=== PATIENT | female | born 1990 | race Caucasian/White ===

== ENCOUNTER 2020-11-16 11:32 | Emergency (ER) | payer MEDICAID, SELFPAY ==
--- NOTE | ~2020-11-16 | CT_ITS ---
EXAMINATION: CT abdomen pelvis wo con DATE: 11/16/2020 14:26 INDICATION: Left flank pain. TECHNIQUE: Computed tomography (CT) of the abdomen and pelvis was performed without intravenous contr ast. Automated exposure control and iterative reconstruction technique were employed. The dose-length product was 1048.53 mGy-cm. COMPARISON: CT abdomen and pelvis 11/01/2012 FINDINGS: The visualized portions of the lung bases demonstrate minimal atelectasis. No pleural effus ion. The heart size is normal. No pericardial effusion. The liver, gallbladder, spleen, pancreas, adr enal glands, and right kidney are normal. There is mild left hydronephrosis and hydroureter. There is a 4 mm stone in distal left ureter. There are no dilated loops of bowel. The appendix is normal. The re are no pathologically enlarged lymph nodes. There is no free intraperitoneal fluid. The bones are unremarkable. IMPRESSION: 1. 4 mm stone in distal left ureter with mild left hydronephrosis and hydroureter. Reviewed, dictated and finalized at location A. IMPRESSION: 1. 4 mm stone in distal left ureter with mild left hydronephrosis and hydrouret er.
[2020-11-16 11:39] VITALS: BP 129/68; PULSE 79; RESP 18; TEMP 36.6; O2SAT 100
[2020-11-16 12:03] LABS: Basophils Absolute Auto 0.1 K/mm3 (0.0-0.1); Basophils Percent Auto 0.6 % (0.2-1.2); Eosinophils Absolute Auto 0.1 K/mm3 (0-0.3); Eosinophils Percent Auto 0.8 % (0-4.4); Hematocrit 44.1 % (37.0-47.0); Hemoglobin 14.4 g/dL (12.0-15.0); Immature Granulocyte Absolute 0.04 K/mm3 (0.00-0.031); Immature Granulocyte Percent A 0.4 % (0-0.5); Lymphocytes Absolute Auto 1.75 K/mm3 (0.9-3.2); Lymphocytes Percent Auto 18.4 % (18.3-44.2); Mean Corpuscular HGB Conc 32.7 g/dl (32-36); Mean Corpuscular Hemoglobin 29.3 pg (26-34); Mean Corpuscular Volume 89.6 fl (80-100); Mean Platelet Volume 9.6 fl (7.4-10.4); Monocytes Absolute Auto 0.8 K/mm3 (0.1-0.6); Monocytes Percent Auto 8.5 % (2.6-8.5); Neutrophils Absolute Auto 6.8 K/mm3 (1.3-6.7); Neutrophils Percent Auto 71.3 % (45.5-73.1); Platelet Count Result 245 k/mm3 (150-375); Red Blood Count 4.92 M/mm3 (4.2-5.4); Red Cell Distribution Width 12.4 % (11.5-14.5); White Blood Count 9.5 K/mm3 (4.5-10.0)
[2020-11-16 12:12] LABS: Anion Gap 11 mmol/L (8-16); Blood Urea Nitrogen 11 mg/dL (7-17); Calcium 9.6 mg/dL (8.4-10.2); Carbon Dioxide 27 mmol/L (22-30); Chloride 100 mmol/L (98-107); Estimated CRCL calculation 102 ml/min; Estimated Glomerular Filt Rate > 60; Glucose 130 mg/dL (65-105); Potassium 4.1 mmol/L (3.4-5.0); Sodium 138 mmol/L (137-145)
[2020-11-16 12:23] LABS: Add Urine Microscopic? YES; Appearance Urine Cloudy (Clear); Bacteria Urine 2+ /hpf; Bilirubin Urine Negative (Negative); Blood Urine 2+ (Negative); Color Urine Yellow (Yellow); Glucose Urine UA Negative (Negative); Ketones Urine Negative (Negative); Leukocyte Esterase Ur 3+ LEU/UL (Negative); Mucus Urine Rare /lpf; Nitrate Urine Negative (Negative); Protein Urine Negative (Negative); RBC Urine 21-50 /hpf (0-2); Specific Grav Ur 1.017 (1.001-1.035); Squamous Epithelial Cell Urine Moderate /hpf (Few); Transitional Epi Cells Urine Rare /hpf (None Seen); Urobilinogen Urine Negative mg/dL (<2.0); WBC Urine 21-30 /hpf
--- NOTE | 2020-11-16 12:52 | PC.NURSE ---
Reports that she is having pain on the left lower side. States history of kidney stones with similar pain but also states this pain is where my ovary is, so I don't know for sure. She does report feeling pressure in her bladder with difficulty urinating. Onset of pain two days ago that got better but came back this morning. no other concerns are reported at this time.
--- NOTE | 2020-11-16 12:56 | ED.ABDPAIN ---
HPI - Abdominal Pain General Chief Complaint: Abdominal Pain Stated Complaint: L flank pain, poss stone Time Seen by Provider: 11/16/20 12:46 Source: patient Mode of arrival: ambulatory Limitations: no limitations History of Present Illness HPI narrative: Patient is a 29-year-old female complaining of left flank pain, sharp, 9 out of 10, nonradiating started today. Patient states that she has a history of kidney stones. Patient denies any chest pain, shortness of breath, abdominal pain, nausea, vomiting, diarrhea, fever, chills or urinary symptoms. Denies any vaginal bleeding or discharge. Related Data Allergies Allergy/AdvReac Type Severity Reaction Status Date / Time No Known Allergies Allergy Unverified 12/24/12 10:14 Review of Systems Review of Systems: All systems reviewed & are unremarkable except as noted in HPI and below Constitutional: Constitutional: Denies body ache(s), Denies chills, Denies excessive sweating, Denies fatigue, Denies fever(s), Denies headache(s), Denies lethargy, Denies malaise, Denies weakness and Denies weight loss Eyes: Eyes: Denies blurry vision, Denies change in vision and Denies loss of vision ENT: Denies dizziness, Denies ear discharge, Denies headache(s), Denies lip swelling, Denies epistaxis, Denies nasal congestion, Denies neck pain, Denies throat swelling and Denies tongue swelling Cardiovascular: Cardiovascular: Denies chest pain, Denies chest pain at rest, Denies chest pain with activity, Denies diaphoresis, Denies rapid heart rate, Denies edema, Denies irregular heart rhythm, Denies lightheadedness, Denies palpitations, Denies dyspnea and Denies dyspnea on exertion Respiratory: Respiratory: Denies chest congestion, Denies cough, Denies hemoptysis, Denies dyspnea and Denies dyspnea on exertion Gastrointestinal: Gastrointestinal: Denies abdominal pain, Denies melena, Denies hematochezia, Denies diarrhea, Denies nausea, Denies vomiting and Denies hematemesis Musculoskeletal: Musculoskeletal: Denies abnormal gait, Denies deformity, Denies joint swelling, Denies limited range of motion, Denies neck pain and Denies numbness Neurologic: Denies Abnormal speech present, Denies abnormal gait, Denies confusion, Denies dizziness, Denies headache(s), Denies focal weakness, Denies loss of vision, Denies numbness, Denies Other visual disturbances, Denies Sensory deficit (Neuro) and Denies weakness Psychiatric: Psychiatric: Denies confusion, Denies depression, Denies auditory hallucinations, Denies homicidal ideation and Denies suicidal ideation Endocrine: Endocrine: Denies cold intolerance, Denies excessive sweating, Denies fatigue, Denies heat intolerance and Denies palpitations Hematologic/Lymphatic: Hematologic/Lymphatic: Denies easy bleeding and Denies easy bruising Allergic/Immunologic: Allergic/Immunologic: Denies lip swelling, Denies throat swelling and Denies tongue swelling PMFSH Social History Social History Gender identity (if verbalized by the patient): Female Comments Past medical history: Kidney stones Family history: Noncontributory Social history: Non-smoker no EtOH or drug use Exam Const: General: cooperative, healthy appearing, comfortable, no acute distress, well developed, alert and awake; No confusion Orientation/consciousness: oriented to person, oriented to place, oriented to time, patient oriented x3 and No confusion Limitations: no limitations HENMT: Head: normal to inspection, normocephalic and atraumatic Ears: hearing grossly normal bilaterally, TM normal on the right and TM normal on the left General nose exam: Normal external nose present, Normal nares present and No nasal discharge present Face and sinus: normal facial exam Mouth: Yes Normal oral and palatal mucosa present, Yes lip normal, Yes tongue normal and Yes oropharynx normal Throat: posterior oropharynx normal, tonsils normal and uvula midline Eyes: General: appearance normal, both eyes and all related
[2020-11-16 13:02] VITALS: BP 125/77; PULSE 57; RESP 18; TEMP 36.6; O2SAT 100
[2020-11-16] MEDS: SODIUM CHLORIDE 0.9% IV 1,000 ML 999 ML IV CONT (13:38)
[2020-11-16] MEDS: KETOROLAC 30 MG/ML VIAL (*BKC) IV PUSH (13:38)
[2020-11-16 14:48] VITALS: BP 125/81; PULSE 56; RESP 18; TEMP 36.2; O2SAT 100
--- NOTE | 2020-11-16 15:00 | PC.NURSE ---
EDP notified that patient is in more pain, pain medications requested at this time.
[2020-11-16] MEDS: TAMSULOSIN HCL 0.4 MG CAPSULE PO (16:45)
[2020-11-16] MEDS: HYDROcodone/acetaminophen (*CRX) 5-325 MG TABLET 1 TAB PO (16:49)
[2020-11-16] MEDS: HYDROmorphone HCL INJ (*CRX) 1 MG/ML SYR 0.5 MG IV PUSH (16:50)
[2020-11-16 17:02] VITALS: BP 127/84; PULSE 52; RESP 16; TEMP 36.6; O2SAT 100
== END 2020-11-16 17:08 | disposition home or self-care (01) ==
PROVIDERS: Emergency Medicine; Emergency Provider Emergency Medicine; PCP Family Medicine
DX: N13.2 Hydronephrosis with renal and ureteral calculous obstruction (principal); Z87.442 Personal history of urinary calculi
CPT/HCPCS: 36415; 74176; 80048; 81001; 81025; 85025; 87086; 87088; 96361; 96374; 96375; 99284; A9270; J1170; J1885; J7030

== ENCOUNTER 2022-10-02 08:38 | Outpatient (NON) | payer MEDICAID, SELFPAY | END 2022-10-02 08:39 | disposition home or self-care (01) | LOC: ANHGOSHLAB 08:39 | PROVIDERS: PCP Emergency Medicine; Visit Provider Nurse Practitioner Family | DX: R39.9 Unspecified symptoms and signs involving the genitourinary system (principal) | CPT/HCPCS: 87086; 87088 ==

== ENCOUNTER 2022-10-11 09:25 | Emergency (ER) | payer MEDICAID, SELFPAY ==
--- NOTE | ~2022-10-11 | CT_ITS ---
EXAMINATION: CT abdomen pelvis w con DATE: 10/11/2022 11:11 INDICATION: Abdominal pain. TECHNIQUE: Computed tomography (CT) of the abdomen and pelvis was performed with 100 mL Omnipaque 350 intravenous contrast. Automated exposure control and iterative reconstruction technique were employe d. The dose-length product was 1051.14 mGy-cm. COMPARISON: CT abdomen and pelvis 11/16/2020 FINDINGS: The visualized portions of the lung bases demonstrate minimal atelectasis. No pleural effus ion. The heart size is normal. No pericardial effusion. The liver, gallbladder, spleen, pancreas, and adrenal glands are normal. There is a 4 mm cyst in right kidney. There is cortical thinning of left kidney. There are no dilated loops of bowel. The appendix is normal. There are no pathologically enla rged lymph nodes. There is no free intraperitoneal fluid. There is mild thoracic spondylosis. IMPRESSION: 1. No etiology for the patient's symptoms. Reviewed, dictated and finalized at location A.
[2022-10-11 09:38] VITALS: BP 159/98; PULSE 95; RESP 18; TEMP 36.4; O2SAT 100
--- NOTE | 2022-10-11 10:05 | ED.ABDPAIN ---
HPI - Abdominal Pain General Chief Complaint: Abdominal Pain Stated Complaint: right flank pain Time Seen by Provider: 10/11/22 10:05 Source: patient and family Mode of arrival: ambulatory Limitations: no limitations History of Present Illness HPI narrative: 31 years old white female history of bipolar presented to the ED with intermittent right abdomen, mid axillary line sharp pain intermittent for the last 3 weeks. 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 She denies any fever, chills, nausea, vomiting, diarrhea, constipation, radiation of pain or relieving factors. History of kidney stone Related Data Home Medications Medication Instructions Recorded Confirmed aripiprazole 5 mg tablet 5 mg PO DAILY 03/07/22 09/09/22 drospirenone 3 mg-ethinyl 1 tablet PO DAILY 03/07/22 09/09/22 estradiol 0.02 mg tablet (PANKAJ (28)) lithium carbonate 300 mg capsule 300 mg PO QHS 03/07/22 09/09/22 lithium carbonate 600 mg capsule 600 mg PO BID 03/07/22 09/09/22 Allergies Allergy/AdvReac Type Severity Reaction Status Date / Time No Known Allergies Allergy Verified 10/11/22 09:43 Review of Systems Review of Systems: All systems reviewed & are unremarkable except as noted in HPI and below PMFSH Past Medical History Medical History Urinary calculus or stone Social History Social History (Updated 09/09/22 @ 10:52 by Divine Solomon MA) Smoking status: Never smoker Lack of Transportation: No Lack of Food: Never True Current Housing: I Have Housing Concerned About Future Housing: No Difficulty Paying Gas/Electric Bills: No Difficulty Paying for Meds: No Currently Unemployed: No Education: Bachelor's Degree Gender identity (if verbalized by the patient): Female Exam Narrative: General appearance: Well-developed, well-nourished Skin: Normal color Head: Normocephalic, nontraumatic Eyes: Clear conjunctiva ENT: Oropharynx normal, ears normal, nose normal Neck: Supple, nontender Chest and respiratory: Airway patent, no respiratory distress, no accessory muscle use Heart: Regular rate/rhythm Abdomen: Soft, nontender, no organomegaly, quiet bowel sounds, no rash or bruises Vascular: Normal peripheral pulses, normal capillary refill. Musculoskeletal: Normal range of motion, nontender back Neurologic: Alert and oriented ?3, [employer] is normal as tested, no gross motor deficit Course Reevaluation(s) Reevaluation #1: No new changes since arrival to the ED until the time of discharge Date: 10/11/22 Time: 12:07 Vital Signs Vital signs: Vital Signs Temperature 36.4 C L 10/11/22 09:38 Pulse Rate 95 10/11/22 09:38 Respiratory Rate 18 10/11/22 09:38 Blood Pressure 159/98 H 10/11/22 09:38 Pulse Oximetry 100 10/11/22 09:38 Oxygen Delivery Room Air 10/11/22 09:38 Temperature 36.4 C L 10/11/22 09:38 Pulse Rate 95 10/11/22 09:38 Respiratory Rate 18 10/11/22 09:38 Blood Pressure 159/98 H 10/11/22 09:38 Pulse Oximetry 100 10/11/22 09:38 Oxygen Delivery Room Air 10/11/22 09:38 MDM - Abdominal Pain MDM Narrative Medical decision making narrative: Patient presents with nonspecific intermittent mid axillary line abdominal pain for 3 weeks, 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 Pain worse at night when she lays down, musculoskeletal is my concern. Physical examination was unremarkable, work-up today include CBC, CMP, UA and CT scan of the abdomen and pelvis with IV contrast showed no acute abnormalities. Musculoskeletal, stress related is my concern. T
[2022-10-11 10:07] LABS: Basophils Absolute Auto 0.1 K/mm3 (0.0-0.1); Basophils Percent Auto 0.6 % (0.2-1.2); Eosinophils Absolute Auto 0.4 K/mm3 (0-0.3); Eosinophils Percent Auto 3.2 % (0-4.4); Hematocrit 41.7 % (37.0-47.0); Hemoglobin 13.3 g/dL (12.0-15.0); Immature Granulocyte Absolute 0.03 K/mm3 (0.00-0.031); Immature Granulocyte Percent A 0.3 % (0-0.5); Lymphocytes Absolute Auto 2.39 K/mm3 (0.9-3.2); Lymphocytes Percent Auto 22.2 % (18.3-44.2); Mean Corpuscular HGB Conc 31.9 g/dl (32-36); Mean Corpuscular Hemoglobin 28.8 pg (26-34); Mean Corpuscular Volume 90.3 fl (80-100); Mean Platelet Volume 9.5 fl (7.4-10.4); Monocytes Absolute Auto 0.7 K/mm3 (0.1-0.6); Monocytes Percent Auto 6.8 % (2.6-8.5); Neutrophils Absolute Auto 7.2 K/mm3 (1.3-6.7); Neutrophils Percent Auto 66.9 % (45.5-73.1); Platelet Count Result 329 k/mm3 (150-375); Red Blood Count 4.62 M/mm3 (4.2-5.4); Red Cell Distribution Width 12.5 % (11.5-14.5); White Blood Count 10.8 K/mm3 (4.5-10.0)
[2022-10-11] MEDS: SODIUM CHLORIDE 0.9% IV 1,000 ML 999 ML IV CONT (10:18)
[2022-10-11 10:29] LABS: Alanine Aminotransferase 26 U/L (6-35); Albumin Level 4.4 g/dL (3.5-5.1); Alkaline Phosphatase 70 U/L (38-126); Anion Gap 8 mmol/L (8-16); Aspartate Amino Transferase 30 U/L (14-36); Bilirubin,Total 0.4 mg/dL (0.2-1.3); Blood Urea Nitrogen 12 mg/dL (7-17); Calcium 9.1 mg/dL (8.4-10.2); Carbon Dioxide 25 mmol/L (22-30); Chloride 104 mmol/L (98-107); Estimated CRCL calculation 114 ml/min; Estimated Glomerular Filt Rate > 60; Glucose 128 mg/dL (65-110); Lipase 65 U/L (23-300); Potassium 4.1 mmol/L (3.4-5.0); Sodium 137 mmol/L (137-145)
[2022-10-11 11:36] LABS: Appearance Urine Clear (Clear); Bacteria Urine 1+ /hpf; Bilirubin Urine Negative (Negative); Blood Urine 2+ (Negative); Color Urine Yellow (Yellow); Glucose Urine UA Negative (Negative); Ketones Urine Negative (Negative); Leukocyte Esterase Ur Trace LEU/UL (Negative); Need Manual Microscopic Reviewed; Nitrate Urine Negative (Negative); Non Pathogenic Casts 0-2; Protein Urine Negative (Negative); Specific Grav Ur 1.005 (1.001-1.035); Squamous Epithelial Cell Urine None seen /hpf (Few); Urobilinogen Urine 0.2 mg/dL (<2.0); WBC Urine 0-5 /hpf
[2022-10-11 11:40] LABS: Add Urine Microscopic? YES
== END 2022-10-11 12:09 | disposition home or self-care (01) ==
PROVIDERS: Emergency Provider Emergency Medicine; PCP Emergency Medicine
DX: R10.10 Upper abdominal pain, unspecified (principal)
CPT/HCPCS: 36415; 74177; 80053; 81001; 81025; 83690; 85025; 96360; 99284; J7030; Q9967

== ENCOUNTER 2024-07-11 13:06 | Outpatient (CLI) | payer OTHER, SELFPAY ==
--- NOTE | ~2024-07-11 | CT_ITS ---
CLINICAL INDICATION: Lower abdominal pain COMPARISON: 10/11/2022 and 11/16/2020 TECHNIQUE: Multiple contiguous axial images of the abdomen and pelvis were performed without the admi nistration of intravenous contrast The dose-length product (DLP) was 894.48 mGy-cm. Automated exposure control and iterative reconstruction technique were employed. FINDINGS/OBSERVATIONS: Visualized lower thorax: The bilateral lung bases are clear. The heart is of normal size, without pericardial effusion. Small hiatal hernia is present. Liver: The liver demonstrates homogeneous attenuation and is not enlarged measuring 18 cm in longitudinal di mension. Gallbladder and biliary system: The gallbladder is only minimally distended, and otherwise unremarkable. Pancreas: Limited evaluation of the pancreas secondary to the lack of intravenous contrast. Spleen: The spleen demonstrates homogeneous attenuation and is not enlarged measuring 11 cm in longitudinal d imension. Kidneys: The bilateral kidneys are unremarkable, without hydronephrosis or obstructing renal calculi. 2 mm calculus within the upper pole of the left kidney. Adrenal glands: Unremarkable. Gastrointestinal tract: Trace fecal stasis within the colon Appendix: The air-filled appendix is of normal caliber (axial series, images 110 - 132). Vasculature: Unremarkable. Lymph nodes: Limited evaluation without intravenous contrast. Pelvic structures: The bladder is minimally distended, and otherwise unremarkable. The uterus is anteverted and anteflex ed, and otherwise unremarkable. Body wall and musculoskeletal: Small fat-containing umbilical hernia. No significant degenerative disease within the lower thoracic or lumbosacral spine. IMPRESSION: No obstructive uropathy. No acute pathology within the abdomen or pelvis, as detailed above. Reviewed, dictated and finalized at location A. [employer]
== END 2024-07-11 13:07 | disposition home or self-care (01) ==
PROVIDERS: PCP Student in an Organized Health Care Education/Training Program; Visit Provider Student in an Organized Health Care Education/Training Program
DX: R39.9 Unspecified symptoms and signs involving the genitourinary system (principal); R10.30 Lower abdominal pain, unspecified
CPT/HCPCS: 74176

== ENCOUNTER 2024-10-23 13:40 | Outpatient (CLI) | payer OTHER, SELFPAY ==
--- NOTE | ~2024-10-23 | MR_ITS ---
MRI of the brain Clinical History: Dizziness and giddiness Technique: Axial and sagittal T1-weighted images were acquired. These were followed by axial T2-weigh riley, diffusion weighted, gradient, and FLAIR images. Following intravenous administration of 18 cc Mu ltiHance gadolinium, T1-weighted fat-sat imaging was performed in the axial and coronal planes. Findings: No abnormal signal seen in the brain parenchyma. No acute infarct, intracranial hemorrhage or mass lesion. Ventricles and subarachnoid spaces are unremarkable. Orbits are unremarkable. Paranasal sinuses and m astoid air cells are clear. Major intracranial flow voids are intact. Sagittal midline structures are intact. No abnormal postcontrast enhancement identified. IMPRESSION: Normal exam. Reviewed, dictated and finalized at location . IMPRESSION: Normal exam.
--- OUTSIDE RECORDS SUMMARY | 2024-10-23 13:44 | XMS_ITS | Referral Summary ---
Author Organization [facility] Address [address] [place] [address] Care Team Providers Care Licensed Massage Therapist Name Role Phone Levy Burgos MD Primary Care Provider [phone] Encounters Date Type Department Care Team Description 10/21/2024 3:00 PM CDT Office Visit [facility] [address] [place] [address] Outpatient Health [address] [place] [address] [address] [place] [address] Bambi Kiran NP Dizziness (Primary Dx); PMDD (premenstrual dysphoric disorder) 10/14/2024 Telephone [facility] [address] [place] [address] [place] [phone] Everardo Alaniz 10/05/2024 Telephone [facility] Clinic [address] [place] [address] Floor [address] [place] [phone] Shawna Benjamin 09/23/2024 9:00 AM CDT Therapy [facility] [address] [place] [address] [address] [place] [phone] Alanis Le, DPT Dizziness and giddiness (Primary Dx) 08/23/2024 11:30 AM CDT Office Visit [facility] Department of Psychiatry [address] [facility] [address] [place] [address] Isela Hawk MD Bipolar I disorder, current or most recent episode depressed, in full remission (Primary Dx); Anxiety 08/21/2024 Plan of Care Documentation [facility] [address] [place] [address] [address] [place] [address] 08/17/2024 4:00 PM CDT Therapy [facility] [address] [facility] [address] [place] [address] Alanis Le, DPT Dizziness and giddiness (Primary Dx) from Last 3 Months Allergies No known active allergies Medications * This document contains information received from the source organization and may not represent a complete record from that organization. levothyroxine (SYNTHROID) 25 mcg tablet Take 1 tablet (25 mcg total) by mouth spiral winder before breakfast 30 tablet 2 01/28/20 22 Active multivitamin capsule Take 1 capsule by mouth daily Active drospirenone-e thinyl estradioL (Zoey, 28,) 3-0.02 mg per tablet Take 1 tablet by mouth daily 28 tablet 12 02/26/20 24 025 Active lithium 600 mg capsuleIndicat ions:Bipolar I disorder, current or most recent episode depressed, in full remission TAKE 1 CAPSULE BY MOUTH EVERY MORNING AND 1 CAPSULE EVERY EVENING WITH 300MG CAPSULE 180 capsule 3 04/05/20 24 Active meclizine (ANTIVERT) 25 mg tablet Take 1 tablet (25 mg total) by mouth 2 (two) times a day as needed 08/17/19 25 Active lithium 300 mg tablet/capsule Indications:Bi polar I disorder, current or most recent episode depressed, in full remission Take 1 tablet/capsul e (300 mg total) by mouth nightly In addition to 600 mg tablet/capsul e for total 900 mg nightly dose 90 capsule 3 10/20/19 25 Active doxylamine (UNISOM) 25 mg tablet Take 0.5 tablets (12.5 mg total) by mouth every 6 (six) hours as needed for sleep or nausea 90 tablet 2 10/22/19 25 Active pyridoxine (VITAMIN B6) 25 mg tablet Take 1 tablet (25 mg total) by mouth every 6 (six) hours as needed (naueea/vomit ing) 90 tablet 2 10/22/19 25 025 Active lithium 300 mg tablet/capsule Indications:Bi polar I disorder, current or most recent episode depressed, in full remission Take 1 tablet/capsul e (300 mg total) by mouth nightly In addition to 600 mg tablet/capsul e for total 900 mg nightly dose 90 capsule 3 09/16/19 24 025 Discontinued Active Problems Problem Noted Date Diagnosed Date 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 Patient plans: continue Zoey Pt follows with PCP Flu vaccine: Declined- gets at work Diet and exercise discussed. Calcium and vitamin D intake discussed. Osteoporosis with DEXA Scan: N/A Colonoscopy/Cologard: N/A < 45 yo Follow up in 1 year of sooner if needed. PMDD (premenstrual dysphoric disorder) Overview (10/21/2024): Options for SSRI restricted d/t lithium and BP1 disorder meds Continue to obtain routine labs with PCP, including Cr Counseled on increasing protein and carb intake and decreasing sugar/sodium/caffine/EtOH intake Manage stress Regular exercise 02/2024: Plan to continue Zoey 10/2024: -Pt self-d/c'd Zoey d/t dizziness/nausea/EDMONDSON -Normal serum labs and EK completed by PCP- MRI pending. Pt to obtain records and send via [facility]. -referral sent to ENT -Consider referral to neuro, pending MRI results -Vit B6/doxylamine combo prescribed for nausea. Counseled this may cause drowsiness, especially in setting of lithium regimen. Unable to prescribe zofran or compazine, as this may cause serotonin syndrome when taken with lithium. Instructed not to take doxylamine with meclizine. Follow up if wanting to re-initiate control for management of PMDD Bipolar I disorder, current or most recent episode depressed, in full remission 05/20/2023 Anxiety 03/25/2023 PTSD (post-traumatic stress disorder) 03/25/2023 Bipolar I disorder, current or most recent episode depressed, in partial remission 01/19/2021 Assessment & Plan (12/26/2022 8:35 AM CDT): 32 yo F with h/o bipolar I disorder with psychotic features, manic episode in fall 2019, who now presents with ~stable mood Sx. Please continue Abilify 5mg daily Please continue [place] 600mg in the morning and 900mg at night. Please continue Prazosin 1mg as needed for anxiety Please continue Hydroxyzine as needed for anxiety Please let us know if your symptoms worsen. Please call 911 and go to an ER if you are in danger of hurting yourself or others. Please follow-up in ~6-8 weeks Assessment & Plan (11/03/2022 5:44 AM CDT): 31 yo F with h/o bipolar I disorder with psychotic features, manic episode in fall 2019, who now presents with ~stable mood Sx. She notices episodes of dissociation and will try Prazosin PRN. Discussed r/b/a. Please continue Abilify 5mg daily Please continue [place] 600mg in the morning and 900mg at night. Please try Prazosin 1mg as needed for anxiety Please get non-fasting bloodwork at [facility] Please continue Hydroxyzine as needed for anxiety Please let us know if your symptoms worsen. Please call 911 and go to an ER if you are in danger of hurting yourself or others. Please follow-up in ~6-8 weeks Assessment & Plan (07/11/2022 12:46 PM SIMPLEX OPERATOR): 31 yo F with h/o bipolar I disorder with psychotic features, manic episode in fall 2019, who now presents with ~stable mood Sx. Please continue Abilify 5mg daily Please continue [place] 600mg in the morning and 900mg at night. Please continue Metformin 500mg twice a day Please get non-fasting bloodwork at [facility] Please continue Hydroxyzine as needed for anxiety Please let us know if your symptoms worsen. Please call 911 and go to an ER if you are in danger of hurting yourself or others. Please follow-up in ~4-6 weeks Assessment & Plan (05/20/2022 5:56 AM SIMPLEX OPERATOR): 31 yo F with h/o bipolar I disorder with psychotic features, manic episode in fall 2019, who now presents with ~stable mood Sx but slight anxiety. She also is finding it hard to lose weight on her medication regimen and we discussed options for this. She agrees to add Metformin and we discussed r/b/a, including the risks of nausea, diarrhea, lactic acidosis, kidney/liver effects. Will check bloodwork while she is taking it. Please continue Abilify 5mg daily Please continue [place] 600mg in the morning and 900mg at night. Please start Metformin 500mg twice a day with meals We will need to check non-fasting bloodwork at [facility] in May or June 2022 Please start Hydroxyzine as needed for anxiety Please let us know if your symptoms worsen. Please call 911 and go to an ER if you are in danger of hurting yourself or others. Please follow-up in 6-8 weeks. Assessment & Plan (03/12/2022 3:49 PM CDT): 31 yo F with h/o bipolar I disorder with psychotic features, manic episode in fall 2019, who now presents with stable mood Sx. Please continue Abilify 5mg daily Please continue [place] 600mg in the morning and 900mg at night. Please continue Levothyroxine 25mcg in the morning before food Please let us know if your symptoms worsen. Please call 911 and go to an ER if you are in danger of hurting yourself or others. Please follow-up in 6-8 weeks. Assessment & Plan (02/03/2022 7:59 AM CDT): 31 yo F with h/o bipolar I disorder with psychotic features, manic episode in fall 2019, who now presents with stable mood Sx. Her TSH was high; will start levothyroxine. Encouraged her to also follow-up with her PCP. Please continue Abilify 5mg daily Please continue [place] 600mg in the morning and 900mg at night. Please get bloodwork at [facility] Please start Levothyroxine 25mcg in the morning before food Please let us know if your symptoms worsen. Please call 911 and go to an ER if you are in danger of hurting yourself or others. Please follow-up in 6-8 weeks. Assessment & Plan (11/15/2021 4:08 PM CDT): 30 yo F with h/o bipolar I disorder with psychotic features, manic episode in fall 2019, who now presents with stable mood Sx. Please continue Abilify 5mg daily Please continue [place] 600mg in the morning and 600mg at night. Please get fasting bloodwork at [facility] Please let us know if your symptoms worsen. Please call 911 and go to an ER if you are in danger of hurting yourself or others. Please follow-up in 6-8 weeks. Assessment & Plan (07/26/2021 5:42 PM SIMPLEX OPERATOR): 30 yo F with h/o bipolar I disorder with psychotic features, manic episode in fall 2019, who now presents with stable mood Sx. She denies any psychotic Sx today. Her recent [place] level was low-normal and we will continue to uptitrate. Please continue Abilify 5mg daily Please try [place] 600mg in the morning and 600mg at night Please also follow-up with your business attorney to discuss your premenstrual symptoms. Please let us know if your symptoms worsen. Please call 911 and go to an ER if you are in danger of hurting yourself or others. Please follow-up in 4-6 weeks. Assessment & Plan (05/09/2021 1:41 PM SIMPLEX OPERATOR): 30 yo F with h/o bipolar I disorder with psychotic features, manic episode in fall 2019, who now presents with some worsening depressive Sx. She denies any psychotic Sx today. Her recent [place] level was low-normal and we will continue to uptitrate. We discussed the r/b/a of O[place], including the risk of kidney effects, hypothyroidism, Li toxicity, tremor, GI effects, sedation, and weight gain. We discussed how she needs to stay well hydrated and avoid NSAIDs while taking it. We discussed the need for regular bloodwork. Please continue Abilify 5mg daily Please try [place] 1200mg at night Next week or later, please get your [place] level drawn in the morning at [facility]. Please try Estarylla control to help with your premenstrual mood symptoms. Please also follow-up with your primary care doctor and/or business attorney to discuss your premenstrual symptoms. Please let us know if your symptoms worsen. Please call 911 and go to an ER if you are in danger of hurting yourself or others. Please follow-up in 4-6 weeks. Assessment & Plan (04/13/2021 4:17 AM SIMPLEX OPERATOR): 30 yo F with h/o bipolar I disorder with psychotic features, manic episode in fall 2019, who now presents with some improvement in her symptoms with the addition of O[place]burg. Her recent [place] level was 0.5. Please continue Abilify 5mg daily Please continue [place] 900mg at night Please let us know if your symptoms worsen. Please call 911 and go to an ER if you are in danger of hurting yourself or others. Please follow-up in 4 weeks. Assessment & Plan (02/28/2021 10:31 AM CDT): 30 yo F with h/o bipolar I disorder with psychotic features, manic episode in fall 2019, who now presents with some worsening depressive Sx. She denies any psychotic Sx today. Her recent [place] level was low-normal at 0.5 and we will continue to uptitrate. We discussed the r/b/a of [place], including the risk of kidney effects, hypothyroidism, Li toxicity, tremor, GI effects, sedation, and weight gain. We discussed how she needs to stay well hydrated and avoid NSAIDs while taking it. We discussed the need for regular bloodwork. Please continue Abilify 5mg daily Please try [place] 1050mg at night After 5 days on this, please get your [place] level drawn in the morning at [facility]. Please let us know if your symptoms worsen. Please call 911 and go to an ER if you are in danger of hurting yourself or others. Please follow-up in 4 weeks. Assessment & Plan (01/19/2021 4:35 PM CDT): 30 yo F with h/o bipolar I disorder with psychotic features, manic episode in fall 2019, who now presents with worsening depressive symptoms. She is transferring her care from Dr. Owens. We discussed treatment options for bipolar disorder with psychotic features. We discussed how [place]burg is a gold standard for the treatment of bipolar disorder. We discussed the r/b/a of [place], including the risk of kidney effects, hypothyroidism, Li toxicity, tremor, GI effects, sedation, and weight gain. We discussed how she needs to stay well hydrated and avoid NSAIDs while taking it. We discussed the need for regular bloodwork. Please continue Abilify 2.5mg daily Please decrease to Effexor XR 37.5mg every other day for 2 weeks, then stop it Please start [place] 300mg at night for one week, then increase to 600mg at night After 5 or more days on [place] 600mg, please get your bloodwork checked in the morning at [facility]. Please do not eat or drink beforehand. Please let us know if your symptoms worsen. Please call 911 and go to an ER if you are in danger of hurting yourself or others. Please follow-up in 3 weeks. 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 Remaining tissue felt to be too broad based for in office resection with inadequate visualization. Recommended resection of tissue + hymenectomy in OR 08/09: s/p surgical resection and repair in OR 09/07: exam with well healing tissue. Recommend abstain from intercourse 1-2 weeks due to remaining stitch still healing. Resolved Problems Problem Noted Date Diagnosed Date Resolved Date Abnormal uterine bleeding (AUB) 08/08/2020 09/07/2020 Overview (08/08/2020): Added automatically from request for surgery [id number] Immunizations Immunization Administration Dates Next Due Influenza, Trivalent, Cell C ulture-based MDCK, Preservative Free, Antibiotic Free, Intramuscular 03/22/2024 Varicella 11/26/2023 Social History Tobacco Use Types Packs/Day Years Used Date Smoking Tobacco: Never Smokeless Tobacco: Never Tobacco Cessation:Counseling Given: Not Answered Alcohol Use Standard Drinks/Week Comments Yes 0 (1 standard drink = 0.6 oz pur e alcohol) Socailly [facility] Utilities Answer Date Recorded In the past 12 months has th e electric, gas, oil, or water company threatened to shut off services in your home? No 02/26/2024 Humiliation, Afraid, Rape, and Kick questionnair e Answer Date Recorded Within the last year, have y ou been afraid of your partner or ex-partner? No 02/26/2024 Within the last year, have y ou been humiliated or emotionally abused in other ways by your partner or ex-partner? No Within the last year, have y ou been kicked, hit, slapped, or otherwise physically hurt by your partner or ex-partner? No 02/26/2024 Within the last year, have y ou been raped or forced to have any kind of sexual activity by your partner or ex-partner? No 02/26/2024 AUDIT-C Answer Date Recorded Q1: How often do you have a drink containing alc ohol? 2-3 times a week 08/09/2020 Q2: How many drinks containi ng alcohol do you have on a typical day when you are drinking? 1 or 2 08/09/2020 Q3: How often do you have si x or more drinks on one occasion? Never 08/09/2020 Overall Financial Resource Strain (CARDIA) Answe r Date Recorded How hard is it for you to pa y for the very basics like food, housing, medical care, and heating? Not hard at all 02/26/2024 Exercise Vital Sign Answer Date Recorde d Days of Exercise per Week 2 days 2019 Minutes of Exercise per Session 30 min 01/27/2020 Hunger Vital Sign Answer Date Recorded Within the past 12 months, y ou worried that your food would run out before you got the money to buy more. Never true 10/22/19 25 Within the past 12 months, t he food you bought just didn't last and you didn't have money to get more. Never true 10/21/2024 PRAPARE - Transportation Answer Date Re corded In the past 12 months, has l ack of transportation kept you from medical appointments or from getting medications? No 02/15 In the past 12 months, has l ack of transportation kept you from meetings, work, or from getting things needed for daily living? No 02/26/2024 Housing Stability Vital Sign Answer Boom e Recorded In the last 12 months, was t here a time when you were not able to pay the mortgage or rent on time? No 02/26/2024 Number of Times Moved in the Last Year Not on fi le 02/26/2024 At any time in the past 12 m [facility], were you homeless or living in a nursing home (including now)? No 02/26/2024 Education Answer Date Recorded What is the highest level of school you have completed or the highest degree you have received? 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 Not on file Not on file Not on file Last Filed Vital Signs Vital Sign Reading Time Taken Comments Blood Pressure 143/79 10/21/2024 3:23 PM CDT Pulse 87 10/21/2024 3:23 PM CDT Temperature 36.4 C (97.6 F) 02/26/2024 1:56 PM CDT Respiratory Rate 20 08/09/2020 2:50 PM CDT Oxygen Saturation 100% 10/21/2024 3:23 PM CDT Inhaled Oxygen Concentration - - Weight 89.9 kg (198 lb 4.8 oz) 10/21/2024 3:23 P M CDT Height 160 cm (5' 3) 10/21/2024 3:23 PM CDT Body Mass Index 35.13 10/21/2024 3:23 PM CDT Plan of Treatment Not on file Procedures Procedure Name Priority Date/Time Associated Diagnosis Comments BASIC METABOLIC PANEL Routine 07/29/2024 9:58 AM CDT Long-term current use of lithium Bipolar I disorder, current or most recent episode depressed, in full remission THYROID FUNCTION CASCADE Routine 07/29/2024 9:58 AM CDT Long-term current use of lithium Bipolar I disorder, current or most recent episode depressed, in full remission LITHIUM LEVEL Routine 07/29/2024 9:58 AM CDT Long-term current use of lithium Bipolar I disorder, current or most recent episode depressed, in full remission PAP AND HIGH RISK HPV, REFLEX TO GENOTYPING Routine 12/19/2022 1:59 PM CDT from Last 3 Months or Most Recently Relevant to Health Maintenance Results * Thyroid Function Davison (07/29/2024 9:58 AM CDT) TSH 1.85 mIU/L [facility] Comment: Reference Range > or = 20 Years 0.40-4.50 Ranges First trimester 0.26-2.66 Second trimester 0.55-2.73 Third trimester 0.43-2.91 Blood 07/29/2024 9:58 AM CDT 07/29/2024 9:58 AM CDT Isela Hawk MD LAB BLOOD ORDERABLES Leda l Result Performing Organization Address City/[facility]/ZIP Co de Phone Number [facility] [address] [place] [address] * [place] level (07/29/2024 9:58 AM CDT) Pathologist [facility] LITHIUM 0.7 0.6 - 1.2 mmol/L [facility] Blood 07/29/2024 9:58 AM CDT 07/29/2024 9:58 AM CDT Isela Hawk MD LAB BLOOD ORDERABLES Leda l Result [facility] [address] [place] [address] * (ABNORMAL) Basic metabolic panel (07/29/2024 9:58 AM CDT) Pathologist [facility] Glucose 101(H) 65 - 99 mg/dL [facility] Comment: Fasting reference interval For someone without known diabetes, a glucose value between 100 and 125 mg/dL is consistent with prediabetes and should be confirmed with a follow-up test. BUN 13 7 - 25 mg/dL [facility] Creatinine 0.95 0.50 - 0.97 mg/dL [facility] eGFR 82 > OR = 60 mL/min/1.7 3m2 [facility] BUN/creat ratio SEE NOTE: 6 - 22 (calc) [facility] Comment: Not Reported: BUN and Creatinine are within reference range. Sodium 138 135 - 146 mmol/L [facility] Potassium, pl 4.2 3.5 - 5.3 mmol/L [facility] Chloride 103 98 - 110 mmol/L [facility] CO2 28 20 - 32 mmol/L [facility] Calcium 9.6 8.6 - 10.2 mg/dL [facility] Blood 07/29/2024 9:58 AM CDT 07/29/2024 9:58 AM CDT us Isela Hawk MD LAB BLOOD ORDERABLES Leda l Result [facility] [address] [place] [address] * Pap and High Risk HPV and Genotyping (Cytology Component) (12/19/2022 1:59 PM CDT) Pap test 12/19/2022 1:59 PM CDT 12/19/2022 3:25 PM CDT Narrative 12/24/2022 1:48 PM CDT EPIC results best viewed via link to PDF [facility] [place], [place] [id number] Note to Patients: This report may contain a detailed description of human tissue sent by a health care provider to the laboratory for pathologic evaluation. The content of this report is essential for diagnosis and may provide important critical findings. This information may be unfamiliar to patients to review without a medical professional present. It is advised that the patient review this report in the presence of a health care provider who can answer questions and explain the details. CYTOPATHOLOGY REPORT FINAL Patient Name: MATT BROWN Gender: F : 1990 (Age: 32) Address: [address] [place] [id number] Hospital #: [id number] Service: ACTIVITIES THERAPIST Location: Patient Type: [facility] SPECIMEN Taken: 12/19/2022 Received: 12/19/2022 Accessioned: 12/22/2022 Reported: 12/24/2022 Physician(s): Gricel Garcia MD FINAL INTERPRETATION SOURCE OF SPECIMEN Liquid based Thin Prep pap with HPV: STATEMENT OF ADEQUACY - Satisfactory for evaluation - Endocervical cells/transformation zone sample absent GENERAL CATEGORIZATION: - Negative for squamous intraepithelial lesion or malignancy phan/12/24/2022 13:48 VENICE Jaquez(ASCP) Report Electronically Reviewed and Signed Out By VENICE Jaquez(ASCP) 12/24/2022 13:48:37 Cervicovaginal Cytology (Pap Test) Disclaimer: The Pap test is a screening test used to detect cervical cancer and its precursors; it is not a diagnostic procedure. False negative and false positive results do occur. Pap test results should be interpreted in the context of pertinent clinical information and biopsy results as indicated. CMS Clinical Laboratory Improvement Amendments (CLIA) mandate that cytologic and histologic results be correlated for laboratory quality rn & improvement standards. FOR ALL HIGH-GRADE CASES we request submission of follow-up histological material and/or reports that have not been previously provided so that we may fulfill said required standards. Gross Description A. Liquid based Thin Prep pap with HPV: Cervical/vaginal - Screening ThinPrep Clinical Diagnosis and History Last Menstrual Period: unknown The patient is a 32 year old woman with screening. Report Images and scanned documents, if included only viewable in PDF version The performance characteristics of some immunohistochemical stains, in-situ hybridization and fluorescence in-situ hybridization tests and immunophenotyping by flow cytometry cited in this report (if any) were determined by the Surgical Pathology Department at [facility] as part of an ongoing quality inspector program and in compliance with federally mandated regulations drawn from the Clinical Laboratory Improvement Act of 1988 (CLIA '88). Some of these tests rely on the use of analyte specific reagents and are subject to specific labeling requirements by the US Food and Drug Administration. Such diagnostic tests may only be performed in a facility that is certified by the Department of Health and Human Services as a high complexity laboratory under CLIA '88. The FDA has determined that such clearance or approval is not necessary. This test is used for clinical purposes. It should not be regarded as investigational or for research. Nevertheless, federal rules concerning the medical use of analyte specific reagents require that the following disclaimer be attached to the report: This test was developed and its performance characteristics determined by the Surgical Pathology Department of [facility]. It has not been cleared or approved by the U. S. Food and Drug Administration. Gricel Garcia MD LAB CYTOLOGY ORDERABLES Final Result from Last 3 Months or Most Recently Relevant to Health Maintenance Insurance [facility] H[facility]/PPO Address: [facility] [address] [place] [address] [facility] [employer] H[facility]/PPO Address: [facility] [id number] [place] [address] Care Teams Licensed Massage Therapist Relationship Specialty Start Date End Date Levy Burgos MD [address] [place] [id number] PCP - General Family Medicine 01/25/24
--- OUTSIDE RECORDS SUMMARY | 2024-10-23 13:44 | XMS_ITS | Encounter Summary ---
Author Organization [facility] Healthcare Address [address] [place] [address] Care Team Providers Care Safety Physician Name Role Phone Levy Burgos MD Primary Care Provider [phone] Reason for Referral * Consultation (Routine) - Pending Review Specialty Diagnoses / Procedures Referred By Sylvester lopez Referred To Contact Otolaryngology Diagnoses Dizziness Bambi Kiran NP [address] [place] [address], [address] [address] Phone: tel: [facility] (All Locations) Referral ID Status Reason Start Date Expiration Date Visits Requested Visits Authorized [id number] Pending Review Specialty Services Required 10/21/2024 11/20/2025 1 1 Question Answer Please select the performing region: [facility] (All Locations) [167] # of visits: 1 Comments Dizziness. (Normal EKG & labs, MRI pending). Reason for Visit * Reason Comments Migraine Encounter Details Date Type Department Care Team (Late st Contact Info) Description 10/21/2024 3:00 PM CDT Office Visit Obstetrics and Gynecology Clinic [address] [place] [address] 3rd Floor [address] [place] [address] Bambi Kiran NP [address] [place] [address], [address] [address] Dizziness (Primary Dx); PMDD (premenstrual dysphoric disorder) Social History Tobacco Use Types Packs/Day Years Used Date Smoking Tobacco: Never Smokeless Tobacco: Never Tobacco Cessation:Counseling Given: Not Answered Alcohol Use Standard Drinks/Week Comments Yes 0 (1 standard drink = 0.6 oz pur e alcohol) Socailly [facility] Utilities Answer Date Recorded In the past 12 months has e electric, gas, oil, or water company [...] any time in the past 12 m [facility], were you homeless or living in a [facility] (including now)? No 02/26/2024 Education Answer Date Recorded What is the highest level of school you have completed or the highest degree you have received? 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 Not on file Not on file Not on file documented as of this encounter Last Filed Vital Signs Vital Sign Reading Time Taken Comments Blood Pressure 143/79 10/21/2024 3:23 PM CDT Pulse 87 10/21/2024 3:23 PM CDT Temperature - - Respiratory Rate - - Oxygen Saturation 100% 10/21/2024 3:23 PM CDT Inhaled Oxygen Concentration - - Weight 89.9 kg (198 lb 4.8 oz) 10/21/2024 3:23 P M CDT Height 160 cm (5' 3) 10/21/2024 3:23 PM CDT Body Mass Index 35.13 10/21/2024 3:23 PM CDT documented in this encounter Ordered Prescriptions Prescription Sig Dispense Quantity Refills Last Filled Start Date End Date pyridoxine (VITAMIN B6) 25 mg tablet Take 1 tablet (25 mg total) by mouth every 6 (six) hours as needed (naueea/vomit ing) 90 tablet 2 10/21/2024 doxylamine (UNISOM) 25 mg tablet Take 0.5 tablets (12.5 mg total) by mouth every 6 (six) hours as needed for sleep or nausea 90 tablet 2 10/21/2024 documented in this encounter Plan of Treatment Scheduled Referrals Name Type Priority Associated Diagnoses Order Schedule Ambulatory referral to ENT Outpatient Referral Routine Dizziness 1 Occurrences starting 10/21/2024 until 10/21/2025 documented as of this encounter Visit Diagnoses Diagnosis Dizziness- Primary Dizziness and giddiness PMDD (premenstrual dysphoric disorder) Premenstrual tension syndromes documented in this encounter Care Teams Safety Physician Relationship Specialty Start Date End Date Levy Burgos MD [address] [facility] [address] [address] PCP - General Family Medicine 01/25/24 documented as of this encounter
--- OUTSIDE RECORDS SUMMARY | 2024-10-23 13:44 | XMS_ITS | Continuity of Care Document ---
Author Organization [facility] Address [address] [place] [address] [address] [place] [address] Phone Care Team Providers Care Trap Setter Name Role Phone Tony OD, Min Unavailable Unavailable Procedures Procedure Date Eye Exam & Treatment Refraction Eye Exam, New Patient Refraction Advance Directives Directive Yes / No Effective Date File Name No Information Encounters Encounter Description Practice Location Reason(s) For Visit Diagnoses Date Provider Providers Copied on Encounter [facility], [address] [place] [address] [address], [place], [place], [id number], tel:[phone] [facility] No Information Oct- 3-201 0 Tony OD Min. [address] [facility] , [address], [place], [place], [facility], [place]. tel:[phone] [facility], [address] [place] [address] [address], [place], [place], [id number], tel:[phone] [facility] No Information 1-200 9 Tony OD Min. [address] [facility] [address], [address], [place], [address], [place]. tel:[phone] Family History Family Member Type Diagnosis Age At Onset No Information Payers Payer name Insurance type Covered libertarian ID Authoriza tion(s) No Information Social History Type Description Quantity Date Captured Comments Sex Female Smoking Status No Information Chief Complaint And Reason For Visit No Information Reason For Referral Reason For Referral No Information History Of Present Illness Encounter Date Complaint History Of Prese nt Illness No Information Functional Status Date Functional Assessmen t No Information Instructions Date Instruction Additional Infor mation No Information Assessments Type Assessment Date No Information Patient Care Teams Name Effective Dates (start - stop) Status Members No Information
--- OUTSIDE RECORDS SUMMARY | 2024-10-23 13:44 | XMS_ITS | Clinical Summary ---
Author Organization [facility] Address [address] [place] [address] Care Team Providers Care Twister Doffer Name Role Phone Levy Burgos MD Primary Care Provider [phone] Allergies No known active allergies Medications * This document contains information received from the source organization and may not represent a complete record from that organization. levothyroxine (SYNTHROID) 25 mcg tablet Take 1 tablet (25 mcg total) by mouth orthopedic nurse before breakfast 30 tablet 2 01/28/20 22 [...] Pt to obtain records and send via [employer]. -referral sent to ENT -Consider referral to [...] Please continue Abilify 5mg daily Please continue Flasher 600mg in the morning and 900mg at [...] Please continue Abilify 5mg daily Please continue Flasher 600mg in the morning and 900mg at [...] weeks Assessment & Plan (07/11/2022 12:46 PM VOCATIONAL GUIDANCE COUNSELOR): 31 yo F with h/o bipolar I disorder with psychotic features, manic episode in fall 2019, who now presents with ~stable mood Sx. Please continue Abilify 5mg daily Please continue Flasher 600mg in the morning and 900mg at [...] weeks Assessment & Plan (05/20/2022 5:56 AM VOCATIONAL GUIDANCE COUNSELOR): 31 yo F with h/o bipolar I [...] Please continue Abilify 5mg daily Please continue Flasher 600mg in the morning and 900mg at [...] Please continue Abilify 5mg daily Please continue Flasher 600mg in the morning and 900mg at [...] Please continue Abilify 5mg daily Please continue Flasher 600mg in the morning and 900mg at [...] Please continue Abilify 5mg daily Please continue Flasher 600mg in the morning and 600mg at night. Please get fasting bloodwork at [facility] Please let us know if your symptoms worsen. Please call 911 and go to an ER if you are in danger of hurting yourself or others. Please follow-up in 6-8 weeks. Assessment & Plan (07/26/2021 5:42 PM VOCATIONAL GUIDANCE COUNSELOR): 30 yo F with h/o bipolar I disorder with psychotic features, manic episode in fall 2019, who now presents with stable mood Sx. She denies any psychotic Sx today. Her recent Flasher level was low-normal and we will continue to uptitrate. Please continue Abilify 5mg daily Please try Flasher 600mg in the morning and 600mg at night Please also follow-up with your transformer inspector to discuss your premenstrual symptoms. Please let us know if your symptoms worsen. Please call 911 and go to an ER if you are in danger of hurting yourself or others. Please follow-up in 4-6 weeks. Assessment & Plan (05/09/2021 1:41 PM VOCATIONAL GUIDANCE COUNSELOR): 30 yo F with h/o bipolar I disorder with psychotic features, manic episode in fall 2019, who now presents with some worsening depressive Sx. She denies any psychotic Sx today. Her recent Flasher level was low-normal and we will continue to uptitrate. We discussed the r/b/a of Flasher, including the risk of kidney effects, hypothyroidism, Li toxicity, tremor, GI effects, sedation, and weight gain. We discussed how she needs to stay well hydrated and avoid NSAIDs while taking it. We discussed the need for regular bloodwork. Please continue Abilify 5mg daily Please try Flasher 1200mg at night Next week or later, please get your Flasher level drawn in the morning at [facility]. Please try Estarylla control to help with your premenstrual mood symptoms. Please also follow-up with your primary care doctor and/or transformer inspector to discuss your premenstrual symptoms. Please let us know if your symptoms worsen. Please call 911 and go to an ER if you are in danger of hurting yourself or others. Please follow-up in 4-6 weeks. Assessment & Plan (04/13/2021 4:17 AM VOCATIONAL GUIDANCE COUNSELOR): 30 yo F with h/o bipolar I disorder with psychotic features, manic episode in fall 2019, who now presents with some improvement in her symptoms with the addition of Flasher. Her recent Flasher level was 0.5. Please continue Abilify 5mg daily Please continue Flasher 900mg at night Please let us know [...] denies any psychotic Sx today. Her recent Flasher level was low-normal at 0.5 and we will continue to uptitrate. We discussed the r/b/a of Flasher, including the risk of kidney effects, hypothyroidism, Li toxicity, tremor, GI effects, sedation, and weight gain. We discussed how she needs to stay well hydrated and avoid NSAIDs while taking it. We discussed the need for regular bloodwork. Please continue Abilify 5mg daily Please try Flasher 1050mg at night After 5 days on this, please get your Flasher level drawn in the morning at [facility]. Please let us know if your [...] disorder with psychotic features. We discussed how Flasher is a gold standard for the treatment of bipolar disorder. We discussed the r/b/a of Flasher, including the risk of kidney effects, hypothyroidism, Li toxicity, tremor, GI effects, sedation, and weight gain. We discussed how she needs to stay well hydrated and avoid NSAIDs while taking it. We discussed the need for regular bloodwork. Please continue Abilify 2.5mg daily Please decrease to Effexor XR 37.5mg every other day for 2 weeks, then stop it Please start Flasher 300mg at night for one week, then increase to 600mg at night After 5 or more days on Flasher 600mg, please get your bloodwork checked in [...] (08/08/2020): Added automatically from request for surgery [id number] Encounters Date Type Department Care Team Description 10/21/2024 3:00 PM CDT Office Visit Obstetrics and Gynecology Clinic [address] [place] [address] [facility] Floor [address] [phone] Bambi Kiran NP Dizziness (Primary Dx); PMDD (premenstrual dysphoric disorder) 10/14/2024 Telephone [facility]etrics [facility] Clinic [address] [place] [address] [address] [phone] Everardo Alaniz 10/05/2024 Telephone [facility]etrics [facility]necology Clinic [address] [place] [address] Floor [address] [phone] Shawna Benjamin 09/23/2024 9:00 AM CDT Therapy [facility] Physical Therapy [address] [place] [phone] Alanis Le DPT Dizziness and giddiness (Primary Dx) 08/23/2024 11:30 AM CDT Office Visit [facility] Department of Psychiatry [address] [facility] [address] [phone] Isela Hawk MD Bipolar I disorder, current or most recent episode depressed, in full remission (Primary Dx); Anxiety 08/21/2024 Plan of Care Documentation [facility] [address] [place] [phone] 08/17/2024 4:00 PM CDT Therapy [facility] [address] [place] [phone] Alanis Le DPT Dizziness and giddiness (Primary Dx) from Last 3 Months Immunizations Immunization Administration Dates Next Due Influenza, Trivalent, Cell C ulture-based MDCK, Preservative Free, Antibiotic Free, Intramuscular 03/22/2024 Varicella 11/26/2023 Surgical History Surgery Date Site/Laterality Comments LITHOTRIPSY 05/18/2011 - 05/17/2012 Medical History Medical History Date Comments Anxiety Kidney stones Liveborn of triplet Family History Medical History Relation Name Comments Diabetes Father Hyperlipidemia Father Hypertension Father Breast cancer Maternal Grandmother Autoimmune disease Mother Rheum arthritis Mother Relation Name Status Comments Father Alive Maternal Grandmother Mother Alive Social History Tobacco Use Types Packs/Day Years Used Date Smoking Tobacco: Never Smokeless Tobacco: Never Tobacco Cessation:Counseling Given: Not Answered Alcohol Use Standard Drinks/Week Comments Yes 0 (1 standard drink = 0.6 oz pur e alcohol) Socailly [facility] Utilities Answer Date Recorded In the past 12 months has e [employer], gas, oil, or water [employer] threatened to shut off services in your [...] any time in the past 12 m [facility], were you homeless or living in a halfway (including now)? No 02/26/2024 Education Answer Date Recorded What is the highest level of school you have completed or the highest degree you have received? 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 Not on file Not on file Obstetrics History Para Term AB IAB SAB Ectopic Multiple Livin g Live Births 0 0 0 0 0 0 0 0 0 0 0 Last Filed Vital Signs Vital Sign Reading [...] 10/21/2024 3:23 PM CDT Plan of Treatment Health Maintenance Due Date Last Done Comments Depression Screening 1990 Hepatitis C Screening 1990 DTaP/Tdap/Td Vaccine (6 - Tdap) 11/18/2003 11/22/1997, 03/12/1994, 06/12/1993, Additional history exists Cervical Cancer Screening 12/20/2023 12/19/2022 Regular Well Visit/Exam 18-64 12/20/2023 12/19/2022, 01/26/2019 Hepatitis B Screening Completed 08/07/1993 , 03/13/1993, 01/22/1993 Varicella Vaccines Completed 11/26/2023, 12/31/1994 Influenza Vaccine Completed 03/22/2024 HPV Vaccines Aged Out No longer eligi ble based on patient's age to complete this topic Pneumococcal vaccine <65 Aged Out No longer eligible based on patient's age to complete this topic Procedures Procedure Name Priority Date/Time Associated Diagnosis [...] to Health Maintenance Results * Thyroid Function [place] (07/29/2024 9:58 AM CDT) TSH 1.85 mIU/L [facility] Comment: Reference Range > or = 20 Years 0.40-4.50 Ranges First trimester 0.26-2.66 Second trimester 0.55-2.73 Third trimester 0.43-2.91 Blood 07/29/2024 9:58 AM CDT 07/29/2024 9:58 AM CDT Isela Hawk MD LAB BLOOD ORDERABLES Leda l Result Performing Organization Address City/[facility]/ZIP Co de Phone Number [facility] [address] [place] [address] * Flasher level (07/29/2024 9:58 AM CDT) Pathologist [facility] LITHIUM 0.7 0.6 - 1.2 mmol/L [facility] Blood 07/29/2024 9:58 AM CDT 07/29/2024 9:58 AM CDT Isela Hawk MD LAB BLOOD ORDERABLES Leda patricio Result Performing Organization Address [facility] de Phone Number [facility] [address] [place] [address] * (ABNORMAL) Basic metabolic panel (07/29/2024 9:58 AM CDT) Pathologist [facility] Glucose 101(H) 65 - 99 mg/dL [facility] [...] Isela Hawk MD LAB BLOOD ORDERABLES Leda patricio Result [facility] [address] [address] [place] [phone] * Pap and High Risk HPV and Genotyping (Cytology Component) (12/19/2022 1:59 PM CDT) Pap test 12/19/2022 1:59 PM CDT 12/19/2022 3:25 PM CDT Narrative 12/24/2022 1:48 PM CDT EPIC results best viewed via link to PDF [facility] Dodie Maya [facility] of Surgical Pathology [place], [place] [id number] Note to Patients: This report may contain [...] details. CYTOPATHOLOGY REPORT FINAL Patient Name: MATT MURRY Gender: Lauren : 1990 (Age: 32) Address: [address] [place] [address] [facility] #: [id number] Service: DEPUTY REGISTER OF DEEDS Location: Patient Type: [facility] SPECIMEN Taken: 12/19/2022 Received: 12/19/2022 Accessioned: 12/22/2022 Reported: 12/24/2022 Physician(s): Gricel Garcia MD FINAL INTERPRETATION SOURCE OF SPECIMEN Liquid based Thin Prep pap with HPV: STATEMENT OF ADEQUACY - Satisfactory for evaluation - Endocervical cells/transformation zone sample absent GENERAL CATEGORIZATION: - Negative for squamous intraepithelial lesion or malignancy phan/12/24/2022 13:48 Floresita Anderson, CT(ASCP) Report Electronically Reviewed and Signed Out By VENICE Jaquez(ASCP) 12/24/2022 13:48:37 Cervicovaginal Cytology (Pap Test) Disclaimer: The Pap test is a screening test used to detect cervical cancer and its precursors; it is not a diagnostic procedure. False negative and false positive results do occur. Pap test results should be interpreted in the context of pertinent clinical information and biopsy results as indicated. [facility] Clinical Laboratory Improvement Amendments (CLIA) mandate that cytologic and histologic results be correlated for laboratory quality process engineer & improvement standards. FOR ALL HIGH-GRADE CASES [...] determined by the Surgical Pathology Department at [facility] as part of an ongoing supervisor type disk quality control program and in compliance with federally mandated [...] determined by the Surgical Pathology Department of [facility]. It has not been cleared or approved by the U. S. Food and Drug Administration. Gricel Garcia MD LAB CYTOLOGY ORDERABLES Final Result from Last 3 Months or Most Recently Relevant to Health Maintenance Insurance [facility] [employer] [facility] HMO/PPO Address: [address] [address] [place] [address] [facility] [employer] [facility] H[facility]/PPO Address: [address] [address] [place] [address] Care Teams Twister Doffer Relationship Specialty Start Date End Date Levy Burgos MD [facility] [place] [address] PCP - General Family Medicine 01/25/24
== END 2024-10-23 13:41 | disposition home or self-care (01) ==
PROVIDERS: PCP Clinical Nurse Specialist; Visit Provider Clinical Nurse Specialist
DX: R42 Dizziness and giddiness (principal)
CPT/HCPCS: 70553; A9577

== ENCOUNTER 2024-12-09 10:51 | Outpatient (CLI) | payer OTHER, SELFPAY ==
--- NOTE | ~2024-12-09 | US_ITS ---
EXAMINATION: US thyroid DATE: 12/09/2024 11:00 INDICATION: Hypothyroidism TECHNIQUE: Multiple ultrasound images of the thyroid were obtained. COMPARISON: None. FINDINGS: The right thyroid lobe measures 6.1 x 2.2 x 2.3 cm. The left thyroid lobe measures 5.1 x 2.4 x 1.8 c m. There is normal echotexture and normal echogenicity throughout the thyroid gland. No discrete nod ules identified. Normal vascular flow is present. IMPRESSION: Normal thyroid ultrasound findings. Reviewed, dictated and finalized at location K.
== END 2024-12-09 10:52 | disposition home or self-care (01) ==
LOC: GOSHIMG 10:52
PROVIDERS: PCP Internal Medicine; Visit Provider Clinical Nurse Specialist
DX: E03.9 Hypothyroidism, unspecified (principal); E04.1 Nontoxic single thyroid nodule
CPT/HCPCS: 76536

== ENCOUNTER 2025-01-06 10:46 | Outpatient (NON) | payer OTHER, SELFPAY ==
--- OUTSIDE RECORDS SUMMARY | 2025-01-06 10:49 | XMS_ITS | Clinical Summary ---
Author Organization [facility] Address [address] [place] [address] Care Team Providers Care Eye Surgeon Name Role Phone Levy Burgos MD Primary Care Provider [phone] Chelsea Hawk DPT Unavailable [phone] Allergies No known active allergies Medications * This document contains information received from the source organization and may not represent a complete record from that organization. 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 30 tablet 2 2 Active multivitamin capsule Take 1 capsule by mouth daily Active lithium 600 mg capsuleIndicat ions:Bipolar I disorder, current or most recent episode depressed, in full remission TAKE 1 CAPSULE BY MOUTH EVERY MORNING AND 1 CAPSULE EVERY EVENING WITH 300MG CAPSULE 180 capsule 3 4 Active lithium 300 mg tablet/capsule Indications:Bi polar I disorder, current or most recent episode depressed, in full remission Take 1 tablet/capsule (300 mg total) by mouth nightly In addition to 600 mg tablet/capsule for total 900 mg nightly dose 90 capsule 3 5 Active fluticasone propionate (FLONASE) 50 mcg/actuation nasal spray Administer 2 sprays into each nostril daily 1 each 1 5 02/03/20 25 Active drospirenone-e thinyl estradioL (Zoey, 28,) 3-0.02 mg per tablet Take 1 tablet by mouth daily 28 tablet 12 4 01/04/20 25 Discontinu ed(Other) meclizine (ANTIVERT) 25 mg tablet Take 1 tablet (25 mg total) by mouth 2 (two) times a day as needed 5 01/04/20 25 Discontinu ed(Other) doxylamine (UNISOM) 25 mg tablet Take 0.5 tablets (12.5 mg total) by mouth every 6 (six) hours as needed for sleep or nausea 90 tablet 2 5 01/04/20 25 Discontinu ed(Other) pyridoxine (VITAMIN B6) 25 mg tablet Take 1 tablet (25 mg total) by mouth every 6 (six) hours as needed (naueea/vomiti ng) 90 tablet 2 5 01/04/20 25 Discontinu ed(Other) Active Problems Problem Noted Date Diagnosed Date [...] sooner if needed. PMDD (premenstrual dysphoric disorder) 4 Overview (10/21/2024): Options for SSRI restricted d/t [...] Pt to obtain records and send via [employer]. -referral sent to ENT -Consider referral to [...] Please continue Abilify 5mg daily Please continue Bellfountain 600mg in the morning and 900mg at [...] Please continue Abilify 5mg daily Please continue Bellfountain 600mg in the morning and 900mg at [...] weeks Assessment & Plan (07/11/2022 12:46 PM ADULT EDUCATION TEACHER): 31 yo F with h/o bipolar I disorder with psychotic features, manic episode in fall 2019, who now presents with ~stable mood Sx. Please continue Abilify 5mg daily Please continue Bellfountain 600mg in the morning and 900mg at [...] weeks Assessment & Plan (05/20/2022 5:56 AM ADULT EDUCATION TEACHER): 31 yo F with h/o bipolar I [...] Please continue Abilify 5mg daily Please continue Bellfountain 600mg in the morning and 900mg at [...] Please continue Abilify 5mg daily Please continue Bellfountain 600mg in the morning and 900mg at [...] Please continue Abilify 5mg daily Please continue Bellfountain 600mg in the morning and 900mg at [...] Please continue Abilify 5mg daily Please continue Bellfountain 600mg in the morning and 600mg at night. Please get fasting bloodwork at [facility] Please let us know if your symptoms worsen. Please call 911 and go to an ER if you are in danger of hurting yourself or others. Please follow-up in 6-8 weeks. Assessment & Plan (07/26/2021 5:42 PM ADULT EDUCATION TEACHER): 30 yo F with h/o bipolar I disorder with psychotic features, manic episode in fall 2019, who now presents with stable mood Sx. She denies any psychotic Sx today. Her recent Bellfountain level was low-normal and we will continue to uptitrate. Please continue Abilify 5mg daily Please try Bellfountain 600mg in the morning and 600mg at night Please also follow-up with your wire bound box machine operator to discuss your premenstrual symptoms. Please let us know if your symptoms worsen. Please call 911 and go to an ER if you are in danger of hurting yourself or others. Please follow-up in 4-6 weeks. Assessment & Plan (05/09/2021 1:41 PM ADULT EDUCATION TEACHER): 30 yo F with h/o bipolar I disorder with psychotic features, manic episode in fall 2019, who now presents with some worsening depressive Sx. She denies any psychotic Sx today. Her recent Bellfountain level was low-normal and we will continue to uptitrate. We discussed the r/b/a of Bellfountain, including the risk of kidney effects, hypothyroidism, Li toxicity, tremor, GI effects, sedation, and weight gain. We discussed how she needs to stay well hydrated and avoid NSAIDs while taking it. We discussed the need for regular bloodwork. Please continue Abilify 5mg daily Please try Bellfountain 1200mg at night Next week or later, please get your Bellfountain level drawn in the morning at [facility]. Please try Estarylla control to help with your premenstrual mood symptoms. Please also follow-up with your primary care doctor and/or wire bound box machine operator to discuss your premenstrual symptoms. Please let us know if your symptoms worsen. Please call 911 and go to an ER if you are in danger of hurting yourself or others. Please follow-up in 4-6 weeks. Assessment & Plan (04/13/2021 4:17 AM ADULT EDUCATION TEACHER): 30 yo F with h/o bipolar I disorder with psychotic features, manic episode in fall 2019, who now presents with some improvement in her symptoms with the addition of Bellfountain. Her recent Bellfountain level was 0.5. Please continue Abilify 5mg daily Please continue Bellfountain 900mg at night Please let us know [...] denies any psychotic Sx today. Her recent Bellfountain level was low-normal at 0.5 and we will continue to uptitrate. We discussed the r/b/a of Bellfountain, including the risk of kidney effects, hypothyroidism, Li toxicity, tremor, GI effects, sedation, and weight gain. We discussed how she needs to stay well hydrated and avoid NSAIDs while taking it. We discussed the need for regular bloodwork. Please continue Abilify 5mg daily Please try Bellfountain 1050mg at night After 5 days on this, please get your Bellfountain level drawn in the morning at [facility]. Please let us know if your [...] disorder with psychotic features. We discussed how Bellfountain is a gold standard for the treatment of bipolar disorder. We discussed the r/b/a of Bellfountain, including the risk of kidney effects, hypothyroidism, Li toxicity, tremor, GI effects, sedation, and weight gain. We discussed how she needs to stay well hydrated and avoid NSAIDs while taking it. We discussed the need for regular bloodwork. Please continue Abilify 2.5mg daily Please decrease to Effexor XR 37.5mg every other day for 2 weeks, then stop it Please start Bellfountain 300mg at night for one week, then increase to 600mg at night After 5 or more days on Bellfountain 600mg, please get your bloodwork checked in [...] (08/08/2020): Added automatically from request for surgery [id number] Encounters Date Type Department Care Team Description 01/03/2025 4:20 PM CDT Office Visit [facility] ([facility]) - [facility] Medicine ENT [address] [facility] 11th [place] [address] [place] [address] Juanito Shelley MD Chronic rhinitis (Primary Dx) 01/03/2025 3:15 PM CDT Procedure visit [facility] Otolaryngology [address] [place] [address] [address]th [place] [address] [place] [address] Leslye Izaguirre Au.D. Dizziness and giddiness (Primary Dx) 12/29/2024 3:15 PM CDT Therapy [facility] Physical Therapy [address] [place] [address] Chelsea Hawk, DPT Cervical pain (Primary Dx) 12/28/2024 Telephone [facility]s [facility] Gynecology Clinic [address] [facility] Outpatient [facility] 3rd Floor [address] [place] [address] Abdulkadir Head 12/28/2024 Telephone [facility] [address] [place] [address] Floor [address] [place] [address] Courtney Bridges 12/16/2024 11:15 AM CDT Therapy [facility] Medicine Physical Therapy [address] [place] [address] Chelsea Hawk, DPT Cervical pain (Primary Dx) 12/15/2024 1:00 PM CDT Therapy [facility] Physical Therapy [address] [facility] [place] [address] Chelsea Hawk, DPT Cervical pain (Primary Dx) 12/02/2024 1:00 PM CDT Procedure visit [facility] Otolaryngology [address] [place] [address] [address]th [place] [address] [place] [address] Dodie Yu Au.D. Dizziness 11/28/2024 Plan of Care Documentation [facility] Physical Therapy [address] [place] [address] 11/25/2024 9:00 AM CDT Therapy [facility] Physical Therapy [address] [place] [address] Alanis Le, DPSanchez Dizziness and giddiness (Primary Dx) 11/22/2024 12:30 PM CDT Office Visit [facility] Psychiatry [address] [facility] [address] [place] [address] Isela Hawk MD Bipolar I disorder, current or most recent episode depressed, in full remission; Anxiety 10/24/2024 Orders Only [facility] Otolaryngology [address] [facility] [address]th [place] [address] [place] [address] Alexa Vasquez Au.D. Dizziness (Primary Dx) 10/24/2024 Telephone [facility] Otolaryngology [facility] [address]th [place] [address] [place] [address] Alexa Vasquez Au.D. 10/21/2024 3:00 PM CDT Office Visit [facility] Clinic [address] [facility] 3rd Floor [address] [place] [address] Bambi Kiran NP Dizziness (Primary Dx); PMDD (premenstrual dysphoric disorder) 10/14/2024 Telephone Obstetrics and Gynecology Clinic [address] [facility] 3rd Floor [address] [place] [address] Everardo Alaniz from Last 3 Months Immunizations Immunization Administration Dates Next Due Influenza, Trivalent, Cell C ulture-based MDCK, Preservative Free, Antibiotic Free, Intramuscular 03/22/2024 Varicella 11/26/2023 Surgical History Surgery Date Site/Laterality Comments LITHOTRIPSY 05/18/2011 - 05/17/2012 Medical History Medical History Date Comments Anxiety Kidney stones Liveborn of triplet Depression Family History Medical History Relation Name Comments Diabetes Father ZOHAIB Hyperlipidemia Father ZOHAIB Hypertension Father ZOHAIB Breast cancer Maternal Grandmother Autoimmune disease Mother Rheum arthritis Mother Relation Name Status Comments Father ZOHAIB Alive Maternal Grandmother Mother Alive Social History Tobacco Use Types Packs/Day Years Used Date Smoking Tobacco: Never Smokeless Tobacco: Never Tobacco Cessation:Counseling Given: Not Answered Alcohol Use Standard Drinks/Week Comments Yes 0 (1 standard drink = 0.6 oz pur e alcohol) Socailly [facility] Utilities Answer Date Recorded In the past 12 months has e TV [employer], [employer], oil, or water [employer] threatened to shut off services in your [...] by your partner or ex-partner? No 02/26/2024 Overall Financial Resource Strain (CARDIA) Answe r [...] any time in the past 12 m [facility], were you homeless or living in a usp (including now)? No 02/26/2024 AUDIT-C Answer Date Recorded Frequency of Alcohol Consumption Not on file 01/03/2025 Q2: How many drinks containi ng alcohol do you have on a typical day when you are drinking? Patient does not drink Frequency of Binge Drinking Not on file 12/16 Education Answer Date Recorded What is the highest level of school you have completed or the highest degree you have received? Bachelor's degree (e.g., BA, AB, BS) 01/26/2019 Comments No Sex and Gender Information Value Date Recorded Sex Assigned at Not on file Legal Sex Female 10:10 PM ADULT EDUCATION TEACHER Gender Identity Not on file Sexual Orientation [...] CDT Inhaled Oxygen Concentration - - Weight 90.7 kg (200 lb) 01/03/2025 4:09 PM CDT Height 160 cm (5' 3) 01/03/2025 4:09 PM CDT Body Mass Index 35.43 01/03/2025 4:09 PM CDT Plan of Treatment Health Maintenance Due Date Last Done Comments Depression Screening 1990 Hepatitis C Screening 1990 Cervical Cancer Screening 12/20/2023 12/19/2022 Regular Well Visit/Exam 18-64 12/20/2023 12/19/2022, 01/26/2019 Influenza Vaccine (#1) 2025 , 06/16/2013, 02/02/2012 DTaP/Tdap/Td Vaccine (8 - Td or Tdap) 03/17/2026 03/17/2016, 12/26/2005, 08/16/2002, Additional history exists Hepatitis B Screening Completed 08/07/1993 , 03/13/1993, 01/22/1993 HPV Vaccines Completed 07/26/2007, 01/2007, 10/02/2006 Varicella Vaccines Completed 11/26/2023, 12/31/1994 Pneumococcal vaccine <65 Aged Out No longer eligible based on patient's age to complete this topic Procedures Procedure Name Priority Date/Time Associated Diagnosis Comments AUDBASE RESULTS 01/03/2025 3:00 PM CDT PAP AND HIGH RISK HPV, REFLEX TO GENOTYPING Routine 12/19/2022 1:59 PM CDT from Last 3 Months or Most Recently Relevant to Health Maintenance Results * AudBase Results (01/03/2025 3:00 PM CDT) Provider [facility] AUDIOLOGY SERVICES ORDERABLES Final Result * Pap and High Risk HPV and Genotyping (Cytology Component) (12/19/2022 1:59 PM CDT) Pap test 12/19/2022 1:59 PM CDT 12/19/2022 3:25 PM CDT Narrative 12/24/2022 1:48 PM CDT EPIC results best viewed via link to PDF [facility]ie [facility] [place] [address] Note to Patients: This report may contain [...] REPORT FINAL Patient Name: MATT MURRY Gender: F : 1990 (Age: 32) Address: [address] [place], [place] [address] [address] Hospital #: [id number] Service: JAVA LEAD Location: Patient Type: [facility] SPECIMEN Taken: 12/19/2022 Received: 12/19/2022 Accessioned: 12/22/2022 Reported: 12/24/2022 Physician(s): Gricel Garcia MD FINAL INTERPRETATION SOURCE OF SPECIMEN Liquid based Thin Prep pap with HPV: STATEMENT OF ADEQUACY - Satisfactory for evaluation - Endocervical cells/transformation zone sample absent GENERAL CATEGORIZATION: - Negative for squamous intraepithelial lesion or malignancy 12/24/2022 13:48 VENICE Jaquez(ASCP) Report Electronically Reviewed and [...] clinical information and biopsy results as indicated. [facility] Clinical Laboratory Improvement Amendments (CLIA) mandate that cytologic and histologic results be correlated for laboratory director software quality assurance & improvement standards. FOR ALL HIGH-GRADE CASES [...] determined by the Surgical Pathology Department at [facility] as part of an ongoing quality rn program and in compliance with federally mandated [...] determined by the Surgical Pathology Department of [facility]. It has not been cleared or approved by the U. S. Food and Drug Administration. Gricel Garcia MD LAB CYTOLOGY ORDERABLES Final Result from Last 3 Months or Most Recently Relevant to Health Maintenance Insurance [employer] Care Teams Eye Surgeon Relationship Specialty Start Date End Date Levy Burgos MD [address] [place], [place] [id number] PCP - General Family Medicine 01/25/24 Chelsea Hawk DPT [address] [place] [address] Physical Therapist Physical Therapy 12/14/24
[2025-01-06 14:02] LABS: Add Urine Microscopic? YES; Appearance Urine Clear (Clear); Glucose Urine UA Negative (Negative); Leukocyte Esterase Ur 1+ LEU/UL (Negative); Need Manual Microscopic Reviewed; Nitrate Urine Negative (Negative); Non Pathogenic Casts 0-2; Specific Grav Ur 1.004 (1.001-1.035)
== END 2025-01-06 10:47 | disposition home or self-care (01) ==
LOC: ANHGOSHLAB 10:46
PROVIDERS: PCP Internal Medicine; Visit Provider Clinical Nurse Specialist
DX: Z87.442 Personal history of urinary calculi (principal)
CPT/HCPCS: 81001; 87086

== ENCOUNTER 2025-04-05 18:35 | Emergency (ER) | payer OTHER, SELFPAY ==
[2025-04-05 18:49] VITALS: BP 136/86; PULSE 78; RESP 16; TEMP 36.3; O2SAT 100
[2025-04-05 18:57] LABS: EDUAAPPEAR Clear; EDUABILI Negative (Negative); EDUABLOOD Negative (Negative); EDUACOLOR1 Yellow; EDUAGLUCOSE Negative (Negative); EDUAKETONE Negative (Negative); EDUALEUKO Trace (Negative); EDUANITRATE Negative (Negative); EDUAPH 5.5; EDUAPROTEIN Negative (Negative); EDUASPGRAVITY 1.010; EDUAUROBILI 0.2
--- NOTE | 2025-04-05 18:58 | ED_ITS ---
HPI - Female Genitourinary General Chief complaint: Urogenital-Female Stated complaint: ABD PRESSURE/PAIN/DARK URINE Time Seen by Provider: 04/05/25 18:55 Source: patient and RN notes reviewed Mode of arrival: ambulatory Limitations: no limitations History of Present Illness HPI Narrative: 34-year-old female presents Express Care complaining of urinary symptoms for 3 days. Patient reports having increased frequency, hesitancy, suprapubic pain. Patient denies any fevers, dysuria, body aches, chills, nausea, vomiting, diarrhea, flank pain, blood in urine, or any other symptoms. Patient has not taken anything [id number] for symptoms. Patient reports a history of recurrent renal stones, she says she has a 2 mm stone in her left kidney currentyl that appeared unchanged earlier June 2024. Related Data Home Medications ?Medication ?Instructions ?Recorded ?Confirmed ?Last Taken ?Type lithium carbonate 300 mg capsule 300 mg PO QHS 2 04/05/25 Unknown History lithium carbonate 600 mg capsule 600 mg PO BID 2 04/05/25 Unknown History Allergies Allergy/AdvReac Type Severity Reaction Status Date / Time No Known Allergies Allergy Verified 04/05/25 18:45 Review of Systems Review of Systems: CONSTITUTIONAL: Denies fever, chills, body aches, or sweats. EYES: Denies visual changes, redness, or discharge. ENT: Denies rhinorrhea, congestion, sore throat, or otalgia. CARDIOVASCULAR: Denies chest pain, palpitations, or edema. RESPIRATORY: Denies cough or dyspnea. GASTROINTESTINAL: Denies abdominal pain, nausea, vomiting, or diarrhea. GENITOURINARY: Positive for hesitancy, suprapubic pain, increased frequency. Negative for hematuria, vaginal bleeding, vaginal discharge. SKIN: Denies rash or itching. MUSCULOSKELETAL: Denies back pain, joint pain, or myalgia. NEUROLOGIC: Denies headache, numbness, or weakness. PSYCHIATRIC: Denies anxiety or depression. All other systems reviewed are negative, except as documented in HPI. [facility] Past Medical History Medical History Lower abdominal pain Excessive oral secretions Numbness and tingling of left side of face Encounter to establish care Lightheadedness Dizziness Fatigue Lumbar radiculopathy Cervical radiculopathy Vestibular migraine Left tennis elbow Urinary calculus or stone Social History Social History Smoking status: Never smoker Lack of Transportation: No Lack of Food: Never True Current Housing: I Have Housing Concerned About Future Housing: No Difficulty Paying Gas/Electric Bills: No Difficulty Paying for Meds: No Currently Unemployed: No Education: Bachelor's Degree Gender identity (if verbalized by the patient): Female Comments At the time of my signature, I reviewed and agree with the nursing past medical, surgical, social, and family history. There is no relevant family history pertinent to the patient complaint. Exam Narrative: GENERAL: This is a well-nourished, well-developed adult, in no apparent distress. They are non ill-appearing, nontoxic appearing. HEAD: normocephalic, atraumatic. EYES: Sclera clear/white. Vision is grossly intact. Conjunctiva normal bilaterally. Extraocular movements intact. EARS: External ears normal,Hearing grossly intact. NOSE: External nose normal THROAT: Mucous membranes moist NECK: Normal range of motion CARDIOVASCULAR: Regular rate and rhythm. Normal S1-S2. No clicks, gallops, rubs, murmurs. RESPIRATORY: Respiratory rate normal, respiratory effort nonlabored, no respiratory distress. Lung sounds clear to auscultation throughout. Lung sounds equal bilaterally. No adventitious lung sounds. GASTROINTESTINAL: Abdomen soft, flat, mild suprapubic tenderness to palpation, nondistended. Bowel sounds are active. No hepato-splenomegaly, or palpable masses. No guarding or rigidity. No rebound tenderness. SKIN: warm, Dry, intact with no suspicious lesions or rash, good texture and turgor. NEURO: awake, alert, and oriented to person, place and time. There were no obvious focal neurologic abnormalities. EXTREMITIES: No joint tenderness, effusion, or edema noted. BACK: Nontender without deformity. No CVA tenderness. Course Course Emergency Course: Portions of this record may have been created with voice recognition software Level of Care: Express Care Visit Vital Signs Vital signs: Vital Signs Temperature 97.4 F L 04/05/25 18:49 Pulse Rate 78 04/05/25 18:49 Respiratory Rate 16 04/05/25 18:49 Blood Pressure 136/86 04/05/25 18:49 Pulse Oximetry 100 04/05/25 18:49 Temperature 97.4 F L 04/05/25 18:49 Pulse Rate 78 04/05/25 18:49 Respiratory Rate 16 04/05/25 18:49 Blood Pressure 136/86 04/05/25 18:49 Pulse Oximetry 100 04/05/25 18:49 MDM - Female Genitourinary MDM Narrative Medical decision making narrative: Urine dipstick with evidence of leukocytes. Urine culture pending. Patient likely has urinary tract infection. Prednisone appear to be clinically consistent with a kidney stone. Will treat her with Bactrim. Strict ER precautions discussed with patient especially she develops fevers, flank pain, vomiting, body aches, chills, or any serious concerns. Discussed physical exam findings. Advised supportive measures and signs/symptoms to go to the ER. Pt is appropriate for outpt treatment and f/u. Differential Diagnosis Differential diagnosis: Likely urinary tract infection, cystitis and other (Pyelonephritis) Lab Data Attestation: I reviewed the patient's lab results. Labs: Lab Results 04/05/25 Range/Units 18:49 POC Urine Color Yellow POC Urine Clarity Clear POC Urine pH 5.5 POC Ur Specif [place] 1.010 POC Urine Protein Negative (Negative) POC Ur Glucose (UA) Negative (Negative) POC Urine Ketones Negative (Negative) POC Urine Blood Negative (Negative) POC Urine Nitrite Negative (Negative) POC Urine Bilirubin Negative (Negative) POC Urine Urobilinogen 0.2 POC U Leukocyte Esteras Trace (Negative) Discharge Plan Discharge Clinical Impression: UTI (urinary tract infection) Qualifiers: Urinary tract infection type: site unspecified Hematuria presence: without hematuria Qualified Code(s): N39.0 - Urinary tract infection, site not specified Patient Disposition: Home Condition: Stable Instructions: Antibiotic Form, Urinary Tract Infection in Women (ED) Additional Instructions: Take the antibiotic as prescribed The urine will be sent of for a culture to identify what type of bacteria is causing your infection. If the culture shows that the antibiotic will not get rid of your infection, you will be notified and a new antibiotic will be called in for you. Increase water intake you will need to follow up with your PCP 3-5 days. Go to the ER for any worsening symptoms, flank pain/side pain, worsening abdom inal pain, fevers, nausea, vomiting, or any other serious concerns Patient Language: Yoruba Prescriptions: New sulfamethoxazole-trimethoprim [Bactrim DS] 800-160 mg tablet 1 tablet PO Q12H 5 Days Qty: 10 0RF No Action lithium carbonate 600 mg capsule 600 mg PO BID lithium carbonate 300 mg capsule 300 mg PO QHS levothyroxine 25 mcg tablet See Rx Instructions .ROUTE .COMPLEX Qty: 90 1RF Dose Instruction: TAKE 1 TABLET BY MOUTH DAILY Rx Instructions: TAKE 1 TABLET BY MOUTH DAILY Follow-up/Referrals: Cheryle Roe APRN, VAULT CLERK-C [Primary Care Provider, Internal Medicine] Time of Disposition: 19:07
== END 2025-04-05 19:10 | disposition home or self-care (01) ==
PROVIDERS: PCP Clinical Nurse Specialist
DX: N39.0 Urinary tract infection, site not specified (principal); Z87.442 Personal history of urinary calculi
CPT/HCPCS: 81003; 87086; 99213; G0463

== ENCOUNTER 2025-04-28 11:40 | Outpatient (NON) | payer OTHER, SELFPAY ==
[2025-04-28 18:58] LABS: Add Urine Microscopic? NO; Appearance Urine Clear (Clear); Glucose Urine UA Negative (Negative); Leukocyte Esterase Ur Negative LEU/UL (Negative); Nitrate Urine Negative (Negative); Specific Grav Ur 1.004 (1.001-1.035)
== END 2025-04-28 11:41 | disposition home or self-care (01) ==
LOC: ANHGOSHLAB 11:41
PROVIDERS: PCP Clinical Nurse Specialist; Visit Provider Clinical Nurse Specialist
DX: R39.9 Unspecified symptoms and signs involving the genitourinary system (principal)
CPT/HCPCS: 81003